=== PATIENT | female | born 1955 | race Caucasian/White ===

== ENCOUNTER 2022-02-27 06:55 | Outpatient (CLI) | payer OTHER | END 2022-02-27 06:56 | disposition home or self-care (01) | LOC: CSHLAB 06:55 | PROVIDERS: ATTEND Obstetrics & Gynecology | DX: Z01.812 Encounter for preprocedural laboratory examination (principal); Z20.822 Contact with and (suspected) exposure to COVID-19; N84.1 Polyp of cervix uteri | CPT/HCPCS: 86850; 86900; 86901; U0003; U0005 ==

== ENCOUNTER 2022-03-04 10:44 | Day surgery (SDC) | payer OTHER ==
[2022-02-27 13:47] VITALS: BMI 25.2
[2022-03-04] MEDS ORDERED: Dexamethasone 20 MG/5 ML VIAL ONE (11:03)
[2022-03-04] MEDS ORDERED: PROPOFOL 20 ML ONE ×2 (11:03→12:19)
[2022-03-04] MEDS ORDERED: Ondansetron PF 4 MG/2 ML Vial ONE (11:03)
[2022-03-04] MEDS ORDERED: Fentanyl 100 MCG/2 ML VIAL ONE ×2 (11:03→13:21)
[2022-03-04] MEDS ORDERED: Ketorolac Tromethamine 30 MG/ML VIAL ONE (11:03)
[2022-03-04] MEDS ORDERED: Midazolam HCl 2 mg/2 ml Vial ONE (11:03)
[2022-03-04] MEDS ORDERED: Lidocaine 1% MPF 2 ML VIAL ONE (11:17)
[2022-03-04 11:58] LABS: Hemoglobin 14.4 g/dL (12.0-15.5); Mean Corpuscular HGB CONC 33.7 g/dL (32.0-36.0); Mean Corpuscular Hemoglobin 30.7 pg (27.0-33.0); Mean Platelet Volume 10.8 fl (7.4-10.4); Platelet Count 324 10x3/uL (150-450); RBC Distribution Width 11.9 % (11.5-14.5); Red Blood Cell (RBC) Count 4.69 10x6/uL (3.90-5.03); White Blood Cell (WBC) Count 7.7 10x3/uL (3.5-10.5)
[2022-03-04] MEDS ORDERED: ceFAZolin 2 GM/Dextrose 50 ML IVPB ONE (12:07)
[2022-03-04] MEDS ORDERED: Silver Nitrate Application 1 EACH ONE (12:50)
== END 2022-03-04 14:45 | disposition home or self-care (01) ==
LOC: CSHSDC 10:44
PROVIDERS: ATTEND Obstetrics & Gynecology
PROC: 0UBC8ZX Excision of Cervix, Via Natural or Artificial Opening Endoscopic, Diagnostic (ICD-10-PCS; principal; 2022-03-04)
DX: N84.1 Polyp of cervix uteri (principal); Z88.2 Allergy status to sulfonamides; Z88.8 Allergy status to other drugs, medicaments and biological substances; Z91.018 Allergy to other foods; Z20.822 Contact with and (suspected) exposure to COVID-19
CPT/HCPCS: 36415; 85027; 86850; 86900; 86901; 88305; J0690; J1100; J1885; J2250; J2405; J2704; J3010; U0003; U0005